=== PATIENT | female | born 1950 | race Caucasian/White ===

== ENCOUNTER 2024-07-29 05:58 | Day surgery (SDC) | payer MEDICARE ==
[2024-07-25 13:37] VITALS: BMI 32.1
[2024-07-29] MEDS ORDERED: Lidocaine 1% (PF) 30 ML VIAL ONE (07:26)
[2024-07-29] MEDS ORDERED: CEFAZOLIN 2 GM VIAL ONE (07:27)
[2024-07-29] MEDS ORDERED: Rocuronium Bromide 10 MG/ML (10ML VIAL) ONE (07:42)
[2024-07-29] MEDS ORDERED: Ondansetron PF 4 MG/2 ML Vial ONE (07:42)
[2024-07-29] MEDS ORDERED: Dexmedetomidine 200 MCG/2 ML VIAL ONE (07:42)
[2024-07-29] MEDS ORDERED: Fentanyl 250 MCG/5 ML VIAL ONE (07:42)
[2024-07-29] MEDS ORDERED: PROPOFOL 20 ML ONE ×2 (07:42→08:44)
[2024-07-29] MEDS ORDERED: Dexamethasone 20 MG/5 ML VIAL ONE (07:42)
[2024-07-29] MEDS ORDERED: Lidocaine 4% Topical Sol 50 ML BOT ONE (07:44)
[2024-07-29] MEDS ORDERED: fentaNYL 50 mcg/mL 1 mL Vial ONE ×2 (07:45)
[2024-07-29] MEDS ORDERED: ePHEDrine Sulfate 50 MG/10 ML VIAL ONE (08:53)
== END 2024-07-29 10:50 | disposition home or self-care (01) ==
LOC: CSHSDC 05:58
PROVIDERS: ATTEND Otolaryngology Otolaryngic Allergy
PROC: 0GTR0ZZ Resection of Parathyroid Gland, Open Approach (ICD-10-PCS; principal; 2024-07-29)
DX: E21.3 Hyperparathyroidism, unspecified (principal); H26.9 Unspecified cataract; I10 Essential (primary) hypertension; F32.A Depression, unspecified; E78.00 Pure hypercholesterolemia, unspecified; D64.9 Anemia, unspecified; Z90.89 Acquired absence of other organs; Z90.49 Acquired absence of other specified parts of digestive tract; Z90.710 Acquired absence of both cervix and uterus; Z79.899 Other long term (current) drug therapy; Z98.890 Other specified postprocedural states; Z79.84 Long term (current) use of oral hypoglycemic drugs; Z88.2 Allergy status to sulfonamides
CPT/HCPCS: 60500; 83970; J1100; J2405; J2704; J3010; 36415; 88305; 88331